=== PATIENT | male | born 1945 | race Caucasian/White ===

== ENCOUNTER 2018-07-20 05:25 | Day surgery (SDC) | payer MEDICARE, OTHER ==
[2018-07-17 12:05] LABS: BASOPHILS % (AUTO) 0.6 % (0-1); EOSINOPHILS # (AUTO) 0.1 X10'3 (0-0.9); EOSINOPHILS % (AUTO) 2.5 % (0-6); LYMPHOCYTES # (AUTO) 1.2 X10'3 (1.1-4.8); LYMPHOCYTES % (AUTO) 20.6 % (21-51); MEAN CORPUSCULAR HEMOGLOBIN 31.8 PG (27.0-31.0); MEAN CORPUSCULAR VOLUME 93.6 FL (78-98); MEAN PLATELET VOLUME 7.4 FL (7.4-10.4); MONOCYTES # (AUTO) 0.4 X10'3 (0-0.9); MONOCYTES % (AUTO) 7.3 % (2-12); NEUTROPHILS # (AUTO) 3.9 X10'3 (1.8-7.7); PRE OP HEMATOCRIT 41.9 % (42.0-52.0); PRE OP HEMOGLOBIN 14.2 g/dL (14.0-17.9); PRE OP PLATELET COUNT 218 X10'3 (140-440); RED BLOOD COUNT 4.47 X10'6 (4.70-6.10); RED CELL DISTRIBUTION WIDTH 13.7 % (11.5-14.5)
[2018-07-17 12:21] LABS: ALBUMIN 3.8 G/DL (3.4-5.0); ALBUMIN/GLOBULIN RATIO 1.2 (1.1-1.5); ALKALINE PHOSPHATASE 69 IU/L (46-116); BLOOD UREA NITROGEN 11 MG/DL (7-18); BUN/CREATININE RATIO 13.4 (5.4-32.0); CALCIUM 9.2 MG/DL (8.5-10.1); CHLORIDE 99 MMOL/L (99-107); CREATININE 0.82 MG/DL (0.60-1.10); PRE OP ALT 18 U/L (30-65); PRE OP ANION GAP 7 (8-16); PRE OP AST 20 U/L (10-37); PRE OP BILIRUB, TOTAL 0.6 MG/DL (0.0-1.0); PRE OP GLUCOSE 95 MG/DL (70-104); PRE OP POTASSIUM 4.1 MMOL/L (3.4-5.1); PRE OP SODIUM 138 MMOL/L (135-145); TOTAL CARBON DIOXIDE 32.1 MMOL/L (24-32); eGFR > 90 ML/MIN
[~2018-07-20] VITALS: Ht 193 cm; Wt 82.6 kg
[~2018-07-20 05:25] MED LIST: SILD50TA PO; TADA10TA PO; ringers solution, lacted 1,000 ML IV SCH
[2018-07-20 05:30] VITALS: BP 122/68
[2018-07-20] MEDS ORDERED: cefazolin/dext.iso 2gm/100 ML IV ONE (05:30)
[2018-07-20] MEDS ORDERED: famotidine 20mg tablet PO ONE (05:30)
[2018-07-20] MEDS ORDERED: LIDOcaine 1% (10mg/ml) 2ml vial ONE (06:04)
[2018-07-20] MEDS ORDERED: BUPIVAcaine/PF 2.5mg/ml (0.25%) 10ml vial ONE (07:03)
[2018-07-20] MEDS ORDERED: LIDOcaine 0.5% (5mg/ml) 50ml vial ONE (07:20)
[2018-07-20] MEDS ORDERED: ringers solution, lacted 1,000 ML IV SCH (08:09)
[2018-07-20 08:10] VITALS: BP 137/80
[2018-07-20] MEDS ORDERED: morphine 4 MG/ML inj SYRINge IV PRN ×2 (08:10)
[2018-07-20] MEDS ORDERED: ondansetron/PF 4mg/2ml inj IV PRN (08:10)
[2018-07-20] MEDS ORDERED: meperidine/PF 25mg/ml syringe IV PRN ×3 (08:10)
[2018-07-20] MEDS ORDERED: proCHLORperazine 10 MG/2 ml inj IV PRN (08:10)
[2018-07-20 08:20] VITALS: BP 133/79
[2018-07-20 08:30] VITALS: BP 124/71
[2018-07-20 08:40] VITALS: BP 129/75
== END 2018-07-20 08:40 | disposition home or self-care (01) ==
LOC: PAS 05:25
PROVIDERS: ATTEND Orthopaedic Surgery Hand Surgery
DX: G56.01 Carpal tunnel syndrome, right upper limb (principal); Z85.828 Personal history of other malignant neoplasm of skin; F17.210 Nicotine dependence, cigarettes, uncomplicated; Z96.649 Presence of unspecified artificial hip joint; Z98.890 Other specified postprocedural states
CPT/HCPCS: 29848; 36415; 80053; 85025; 93005; A6449; J0690; J2001; J3490; A7000; J7120

== ENCOUNTER 2022-05-08 16:59 | Emergency (ER) | payer MEDICARE ==
[~2022-05-08] VITALS: Ht 193 cm; Wt 86.4 kg
[~2022-05-08 16:59] MED LIST changes: -ringers solution, lacted 1,000 ML IV SCH
[2022-05-08] MEDS ORDERED: acetaminophen 325mg tablet PO ONE (17:15)
[2022-05-08] MEDS ORDERED: ringers solution, lacted 1,000 ML IV ONE (17:15)
[2022-05-08 17:42] LABS: D-DIMER 2.45 MG/L FEU (0-0.50)
[2022-05-08 17:45] LABS: BASOPHILS % (AUTO) 0.2 % (0-1); EOSINOPHILS % (AUTO) 0 % (0-6); HEMATOCRIT 29.7 % (42.0-52.0); HEMOGLOBIN 10.2 g/dl (14.0-17.9); LYMPHOCYTES # (AUTO) 0.6 X10'3 (1.1-4.8); LYMPHOCYTES % (AUTO) 3.6 % (21-51); MEAN CORPUSCULAR HEMOGLOBIN 28.6 PG (27.0-31.0); MEAN CORPUSCULAR HGB CONC 34.3 g/dL (33.0-36.5); MEAN CORPUSCULAR VOLUME 83.3 FL (78-98); MEAN PLATELET VOLUME 6.7 FL (7.4-10.4); MONOCYTES % (AUTO) 5.5 % (2-12); NEUTROPHILS # (AUTO) 16.1 X10'3 (1.8-7.7); NEUTROPHILS % (AUTO) 90.7 % (42-75); PLATELET COUNT 457 X10'3 (140-440); RED BLOOD COUNT 3.56 X10'6 (4.70-6.10); RED CELL DISTRIBUTION WIDTH 15.7 % (11.5-14.5); WHITE BLOOD COUNT 17.7 X10'3 (4.5-11.0)
[2022-05-08 17:48] LABS: ALANINE AMINOTRANSFERASE 19 U/L (12-78); ALBUMIN 2.3 G/DL (3.4-5.0); ALBUMIN/GLOBULIN RATIO 0.5 (1.1-1.5); ALKALINE PHOSPHATASE 70 IU/L (46-116); ANION GAP 6 (8-16); ASPARTATE AMINO TRANSFERASE 19 U/L (10-37); BILIRUBIN,TOTAL 0.4 MG/DL (0.1-1.0); BLOOD UREA NITROGEN 15 MG/DL (7-18); BUN/CREATININE RATIO 15.6 (5.4-32.0); CALCIUM 8.8 MG/DL (8.5-10.1); CHLORIDE 88 MMOL/L (99-107); CREATININE 0.96 MG/DL (0.60-1.10); GLUCOSE 172 MG/DL (70-104); POTASSIUM 4.7 MMOL/L (3.5-5.1); SODIUM 123 MMOL/L (135-145); TOTAL CARBON DIOXIDE 28.8 MMOL/L (24-32); TOTAL PROTEIN 6.6 G/DL (6.4-8.2); eGFR 76 ML/MIN
--- NOTE | 2022-05-08 18:18 | NUR ---
Pt stated that his brain feels foggy and he feels better with a little water on his forhead.
[2022-05-08] MEDS ORDERED: iohexol 350MG/ML 100ml bottle IV ONE (19:24)
--- NOTE | 2022-05-08 19:32 | NUR ---
Patient to CT
[2022-05-08] MEDS ORDERED: LIDOcaine 2% 10ml TOPICAL JELLY (Urojet) MM ONE (19:40)
[2022-05-08 20:20] LABS: CLARITY,URINE CLEAR (Clear); GLUCOSE, URINE NEGATIVE (Neg); KETONES,URINE NEGATIVE (Neg); LEUKOCYTE ESTERASE ,URINE NEGATIVE (Neg); NITRITES, URINE NEGATIVE (Neg); OCCULT BLOOD,URINE NEGATIVE (Neg); PH,URINE 6.5 (4.8-8.0); PROTEIN,URINE TRACE mg/dl (Neg)
[2022-05-08 20:24] LABS: COLOR,URINE AMBER (Yellow); UA COLLECTION TYPE FOLEY CATH
[2022-05-08 20:27] LABS: CAL OXALATE CRYSTALS FEW /HPF (NEGATIVE); HYALINE CASTS 0-3 /LPF (NEGATIVE); MUCUS STRANDS MANY /LPF (Neg)
[2022-05-08 20:28] LABS: WBC,URINE 0-4 /HPF (0-4)
[2022-05-08 20:29] LABS: BACTERIA,URINE NONE SEEN /HPF (Neg); SQUAMOUS EPITHELIAL CELL,UR NONE SEEN /LPF (FEW); TRANSITIONAL EPI CELLS,URINE FEW /HPF
[2022-05-08] MEDS ORDERED: ceFAZolin 1GM/D5W- ADD-VANTAGE 50 ML IV ONE (20:50)
[2022-05-08] MEDS ORDERED: azithromycin/NS 500mg/250ml 250 ML IV ONE (20:50)
[2022-05-08 20:55] LABS: OSMOLALITY 261 MOSM/K (280-300)
[2022-05-08 21:25] LABS: OSMOLALITY UA 799 MOSM/K (50-1400); SODIUM,URINE RANDOM < 15 MEQ/L
[2022-05-08] MEDS ORDERED: azithromycin 250mg tablet PO ONE (21:35)
[2022-05-08] MEDS ORDERED: AMOX-117 PO (21:35)
[2022-05-08] MEDS ORDERED: DOXY-1 PO (21:35)
[2022-05-08] MEDS ORDERED: CEFD250S3 PO ×2 (21:42)
[2022-05-08 22:05] VITALS: BP 119/52
[2022-05-14] MEDS ORDERED: CEFD250S4 PO (00:37)
[2022-05-14] MEDS ORDERED: TADA5TAB13 PO (00:37)
== END 2022-05-08 22:12 | disposition left against medical advice (07) ==
LOC: ER 16:59
DX: E87.1 Hypo-osmolality and hyponatremia (principal); Z20.822 Contact with and (suspected) exposure to COVID-19; J18.9 Pneumonia, unspecified organism; R50.9 Fever, unspecified; R09.02 Hypoxemia; D72.829 Elevated white blood cell count, unspecified; R91.8 Other nonspecific abnormal finding of lung field; R33.9 Retention of urine, unspecified; M10.9 Gout, unspecified; Z85.9 Personal history of malignant neoplasm, unspecified; Z79.2 Long term (current) use of antibiotics; Z79.899 Other long term (current) drug therapy
CPT/HCPCS: 36415; 51702; 71045; 71275; 74177; 80053; 81001; 83605; 83935; 84145; 84300; 85025; 85379; 87040; 87502; 87503; 87635; 93005; 96361; 96365; 99285; C1758; C9803; J0690; J3490; J7120; Q9967; 82575; 83930; 96366; A4615

== ENCOUNTER → 2022-08-03 | Day surgery (SDC) | payer OTHER, MEDICARE ==
[2022-08-03] VITALS (11 sets, daily range): BP systolic 134–151; BP diastolic 63–85
[~2022-08-03] VITALS: Ht 193 cm; Wt 75.0 kg
[~2022-08-03] MED LIST changes: +ALB0.5UD IH; +BUPIVAcaine 0.5% inj/PF 30 ML ONE; +BUPIVAcaine 0.5% inj/PF 30 ml vial IJ ONE; +ENOX40DI11 SQ; +FER300L; +FURO20TA4 PO; +GABA-530 PO; +HYDR-3972 PO; +HYDROmorphone/PF 0.2 MG/ML SYRINGE IV PRN; +LACTC PO; +LEVO25TA7 PO; +MAGN400T52 PO; +POTA-206 PO; -SILD50TA PO; -TADA10TA PO; +TADA5TAB13 PO; +TERA2CAP4 PO; +ZYV600I IV; +albumin (Human) 5% 250ml 250 ML IV ONE; +albuterol 2.5 MG/3 ML nebule NEB ONE; +ceFOXitin 2GM-NS 100mL ADDvant 100 ML IV ONE; +ePHEDrine 50MG/ML INJ. ONE; +famotidine 20mg tablet PO ONE; +fentaNYL/PF 50MCG/1 ML 2ML syringe ONE; +glycopyrrolate 0.2mg/ml inj ONE; +midazolam 1 mg/ML 2ml injection ONE; +morphine 2 MG/ML inj. syringe IV ONE; +morphine 4 MG/ML inj SYRINge ONE; +neostigmine methylsulfate 1 MG/ML 10ml vial ONE; +normal saline 1000ml 1,000 ML IV SCH; +ondansetron/PF 4mg/2ml inj IV PRN; +ondansetron/PF 4mg/2ml inj ONE; +phenylephrine 10mg/ml inj. -priapism dosing ONE; +ringers solution, lacted 1,000 ML IV SCH; +rocuronium 10mg/ml inj IV ONE; +sevoflurane 250ml liquid IH ONE
[2022-08-03 11:55] LABS: CLARITY,URINE CLOUDY (Clear); COLOR,URINE YELLOW (Yellow); GLUCOSE, URINE NEGATIVE (Neg); KETONES,URINE NEGATIVE (Neg); LEUKOCYTE ESTERASE ,URINE NEGATIVE (Neg); NITRITES, URINE NEGATIVE (Neg); OCCULT BLOOD,URINE NEGATIVE (Neg); PH,URINE 8.5 (4.8-8.0); PROTEIN,URINE NEGATIVE (Neg); UROBILINOGEN,URINE 0.2 E.U/dL (0.2-1.0)
[2022-08-03 12:00] LABS: UA COLLECTION TYPE OTHER
[2022-08-03 12:01] LABS: RBC,URINE 0-2 /HPF (0-2)
[2022-08-03 12:02] LABS: AMORPHOUS PHOSPHATES 4+; BACTERIA,URINE NONE SEEN /HPF (Neg); MUCUS STRANDS FEW /LPF (Neg); SQUAMOUS EPITHELIAL CELL,UR NONE SEEN /LPF (FEW); WBC,URINE 0-4 /HPF (0-4)
--- NOTE | 2022-08-03 14:37 | NUR ---
Received from OR via [facility] , accompanied by Anesthesiologist JOANNA and report given by Anesthesiolgist. PATIENT WITH 118G PIVI N RIGHT FOREARM. PATIENT C.O. PAIN TO BUTTOCKS. MEDICATED UPON ARRIVAL. VSS. 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 PATIENT DOES NOT C.O. PAIN AT THESES SITES. TRACH CAP ON AND PATIENT VERBAL. WILL CONTINUE TO ASSESS AND TREAT FOR PAIN. Addendum: 08/03/22 at 1519 by Sundar Baum RN, RN Amended: Links added.
--- NOTE | 2022-08-03 15:52 | NUR ---
REPORT CALLED TO [facility] NURSE BOYD. ALL QUESTIONS ANSWERED. NURSE IS FAMILIAR WITH PATIENT. PATIENT CURRENTLY RESTING WITH PILLOWS TO BUTTOCKS AREA FOR COMFORT. TRANSPORT BEING ARRANGED AND WILL CALL BACK WHEN AVAILABLE. Addendum: 08/03/22 at 1553 by Sundar Baum RN, RN Amended: Links added.
--- NOTE | 2022-08-03 16:37 | NUR ---
ALL DC CRITERIA MET. SENT BACK TO [facility] VIA [facility] CARGO. VSS, REPORT GIVEN TO OLIVER GUZMÁN. Addendum: 08/03/22 at 1653 by Sundar Baum RN, RN Amended: Links added.
--- NOTE | 2022-08-03 16:43 | NUR ---
REPORTED TO NURSE AT [facility] WHO IS FAMILIAR WITH PATIENT. PATIENT PAIN TO SACRAL AREA MUCH MORE COMFORTABLE. VSS. TAKEN BY ISAC CARGO TO [facility]. DISCUSSED WITH THE PATIENTS . Addendum: 08/03/22 at 1646 by Sundar Baum RN RN Amended: Links added.
== END | disposition home or self-care (01) ==
LOC: PAS 09:44
PROVIDERS: ATTEND Surgery
DX: L89.159 Pressure ulcer of sacral region, unspecified stage (principal); I25.2 Old myocardial infarction; J44.9 Chronic obstructive pulmonary disease, unspecified; N40.0 Benign prostatic hyperplasia without lower urinary tract symptoms; F10.10 Alcohol abuse, uncomplicated; Z87.891 Personal history of nicotine dependence; Z85.89 Personal history of malignant neoplasm of other organs and systems; Z93.1 Gastrostomy status; Z86.79 Personal history of other diseases of the circulatory system; Z98.890 Other specified postprocedural states; Z79.899 Other long term (current) drug therapy; Z86.14 Personal history of Methicillin resistant Staphylococcus aureus infection
CPT/HCPCS: 36415; 44620; 81001; 86885; 86900; 86901; 87081; 93005; A6224; J0694; J1170; J2250; J2270; J2370; J2405; J2710; J3010; J3490; J7030; J7120; P9045; S0020; Z7506; Z7512; A4421; A4618; A6212; A6213; A6449; A7000